=== PATIENT | male | born 1995 | race Hispanic/Latino ===

== ENCOUNTER 2023-05-20 10:22 | Emergency (ER) | payer OTHER ==
--- OUTSIDE RECORDS SUMMARY | 2023-05-20 10:32 | XMS REPORT | Continuity of Care Document ---
:1995 Author Organization [facility] t Address [address] [facility] [address] [place] [address] Care Team Providers Name Role Phone PCP, PATIENT DOES NOT HAVE A Primary Care Physician Unavaila Susanne Etienne Attending Clinician Unavailable Mariaa Casas Attending Clinician Unknown, Attending Attending Clinician Unavailable MARIAA ALMENDAREZ Attending Clinician Unavailable RANDI ROBERTS Attending Clinician Unavailable Payers Payer Name Policy Type Policy Number Effective Date Expiration Date Hannah bella CIGNA 2 [id number] 2021 00:00:00 CIGNA C1 [id number] 2020 [facility] - 00:00:00 [facility] Problems Condition Condition Condition Status Onset Resolution Last Treating Co mments Source Name Details Category Date Date Treatment Clinician Date Anxiety Anxiety Disease Active 2020- Univers 4-15 ity of 00:00: [address] Panic Panic Disease Active 2020-0 Univers attacks attacks 4-15 ity of 00:00: [address] [id number] Chronic Problem Active Common gastritis [facility] without - [facility] bleeding, St unspecifie [facility] Medical gastritis Center type [id number] Encounter Problem Active Com mon for [facility] general - [facility] adult [facility] examinatio Medica l n with Center abnormal findings [id number] Frequent Problem Active Comm on headaches [facility] - [facility] [id number] Anxiety Problem Active Commo n disorder, Spirit unspecifie - [facility] d [facility] Allergies, Adverse Reactions, Alerts Allergy Allergy Status Severity Reaction(s) Onset Inactive Treating Comm ents Source Name Type Date Date Clinician NO KNOWN Drug Active Univers ALLERGIE Class ity of S [facility] Social History Social Habit Start Date Stop Date Quantity Comments Source History of [facility] - Tobacco Use [facility] Tobacco use and 2022-12-18 2022-12-18 Smokeless tobacco Un iversity of exposure 00:00:00 00:00:00 non-user [facility] Alcohol intake 2022-12-18 2022-12-18 Lifetime University of 00:00:00 00:00:00 non-drinker [facility] (finding) [place] Sex Ass[birth year] Universit y of 00:00:00 00:00:00 [facility] Smoking Status Start Date Stop Date Source Never smoked tobacco [facility] Medications Ordered Filled Start Stop Current Ordering Indication Dosage Frequency Signature Comments Components Source Medication Medication Date Date Medication? Clinician (SIG) Name Name ondansetron 2022- No [id number] 4mg Take 1 Univers 4 mg 6-26 07-02 tablet by ity of disintegrat 00:00[place] 04:59 [place] tablet [place] :00 every 8 Medica l (eight) Branch hours as needed for Nausea and Vomiting (N/V) for up to 5 days. BUSPIRONE Yes [id number] TAKE 1 Un jermaine 10 mg 5-08 TABLET BY ity of tablet 00:00: MOUTH 2 [place] 00 TIMES Medical DAILY Branch NEEDED FOR (ANXIETY) Omeprazole Omeprazole Yes Susanne TAKE 1 [facility] [place] CAPSULE BY Spirit MOUTH - [facility] EVERY DAY [facility] BusPIRone BusPIRone Yes Susanne take 1 Co mmon HCl HCl [place] tablet by Spirit mouth 2 to - [facility] [address] [facility] as [facility] needed for Medical anxiety Center Venlafaxine Venlafaxine Yes Susanne 1 tablet Common HCl HCl [place] with food [facility] - [facility] busPIRone busPIRone No busPIRone HCl 10 MG HCl 10 MG HCl 10 MG Venlafaxine Venlafaxine No 1{table QD Venlafaxin HCl 75 MG HCl 75 MG t_with_ e HCl 75 food} MG Omeprazole Omeprazole No Omeprazole 40 MG 40 MG 40 MG Vital Signs Vital Name Observation Time Observation Value Comments Source Systolic blood 2022-12-19 00:41:00 128 mm[Hg] Univer sity [facility] Diastolic blood 2022-12-19 00:41:00 86 mm[Hg[facility] 2022-12-19 00:41:00 112 /min [facility] Body temperature 2022-12-19 00:41:00 37.44 Theresa [facility] Respiratory rate 2022-12-19 00:41:00 18 /min [facility] Body height 2022-12-19 00:41:00 177.8 cm [facility] Body weight 2022-12-19 00:41:00 125.601 kg [facility] BMI 2022-12-19 00:41:00 39.73 kg/m2 [facility] Oxygen saturation in 2022-12-19 00:41:00 96 /min [facility] Arterial blood by [facility] Pulse oximetry Branch height 2021-03-21 14:40:00 70 [in_i] [facility] weight 2021-03-21 14:40:00 240.6 [lb_av] [facility] temperature 2021-03-21 14:40:00 98.2 [degF] [facility] bmi 2021-03-21 14:40:00 34.52 kg/m2 [facility] oximetry 2021-03-21 14:40:00 99 % [facility] respiratory rate 2021-03-21 14:40:00 16 /min Comm on [facility] blood pressure 2021-03-21 14:40:00 123 mm[Hg] [facility] systolic [facility] blood pressure 2021-03-21 14:40:00 68 mm[Hg] [facility] diastolic [facility] Procedures Procedure Date / Time Performed Performing Clinician Soursylvia e POCT GLUCOSE 2022-12-19 01:00:00 Unknown, Attending [facility] Branch POCT SARS-COV-2 2022-12-18 00:00:00 Mariaa Almendarez [place] [facility] [place] ANTIGEN (BINAX NOW) Medical Bran ch Encounters Start End Encounter Admission Attending Care Care Encounter Source Date/Time Date/Time Type Type Clinicians Facility Department ID 2022-12-04 Outpatient [place], STLMLC STLMLC [id number] Common 13:14:00 Susanne [id number] [facility] 2022-03-20 Outpatient [place], STLMLC STLC [id number] Common 15:37:01 Susanne [id number] [facility] 2021-07-20 Outpatient [place], STLMLC STLC [id number] Common 14:00:13 Susanne [id number] [facility] 2021-07-20 Outpatient [place], STLMLC STLC [id number] Common 13:53:02 Susanne [id number] [facility] 2021-07-20 [facility] [place] [id number] Common 11:23:55 Susanne [id number] [facility] 2022-12-18 2022-12-18 Urgent Mariaa Almendarez [facility] [id number] Univers 19:20:00 20:14:05 Care Unknown, Attending [id number] [id number] Alberto as MY?BLEA [id number] [place] [address] MEDICAL OFFICE BUILDING 2022-12-18 2022-12-18 Outpatient Valeria ALMENDAREZ VABRUCE [facility] [id number] [facility] 19:20:00 20:14:05 MARIAA ity [facility] 2021-07-05 2021-07-05 Outpatient RANDI ROBERTS [id number] Drea 11:30:00 11:30:00 Seybol d 2021-03-21 2021-03-21 PREV VISIT [facility] [id number] Common 00:00:00 00:00:00 EST AGE [facility] 18-39 [facility] 2020-01-22 2020-01-22 Outpatient Kaden Morton [id number] Common 08:20:00 08:20:[address] Sp[facility] [address] [facility] 2019-11-24 2019-11-24 Outpatient Kaden Morton [id number] Common 08:20:00 08:20:[address] Spir [address] [facility] 2019-11-13 2019-11-13 Outpatient Kaden Morton [id number] Common 12:17:00 12:17:[address] Spir [address] [facility] Results Test Description Test Time Test Comments Results Result Comments Source POCT GLUCOSE (AUTOMATED) 2022-12-19 01:04:09 Test Item Value Reference Range Interpretation Comme nts POCT GLU (test code = 8394916206) 128 mg/dL 70-110 H Lab Interpretation (test code = 25562-4) [facility]normal [facility] ANTIGEN (BINAX NOW)2022-12-19 01:04:00 Test Item Value Reference Range Interpretation Comments POCT SARS-COV-2 ANTIGEN (test Not Detected Not Detected code = 89423-4) On board controls acceptable Yes with C Line (test code = 3574) [facility]
--- NOTE | 2023-05-20 10:42 | ER ---
Nurse's Notes [facility] Name: Pavel Penn Age: 27 yrs Sex: Male : 1995 Arrival Date: 05/20/2023 Time: 10:22 Bed 12 Private MD: Diagnosis: Acute suppurative otitis media Presentation: 05/20 10:34 Chief complaint: Patient states: RIGHT EAR PAIN X 2 DAYS RADIATES TO HEAD AND RIGHT db JAW. STATES FELT LIKE HAD A FEVER YESTERDAY. Coronavirus screen: Vaccine status: Patient reports receiving the 2nd dose of the covid vaccine. Client denies travel out of the [place] in the last 14 days. At this time, the client does not indicate any symptoms associated with coronavirus-19. Ebola Screen: Patient negative for fever greater than or equal to 101.5 degrees Fahrenheit, and additional compatible Ebola Virus Disease symptoms Patient denies exposure to infectious person. Patient denies travel to an Ebola-affected area in the 21 days before illness onset. No symptoms or risks identified at this time. Initial Sepsis Screen: Does the patient meet any 2 criteria? HR > 90 bpm. Does the patient have a suspected source of infection? No. Patient's initial sepsis screen is negative. Risk Assessment: Do you want to hurt yourself or someone else? Patient reports no desire to harm self or others. Onset of symptoms was May 20, 2023. 10:34 Method Of Arrival: Ambulatory db 10:34 Acuity: ANTHONY 4 db Triage Assessment: 10:36 General: Appears in no apparent distress. comfortable, Behavior is calm, cooperative. db Pain: Complains of pain in right ear. EENT: Ear canal PAIN. Neuro: Level of Consciousness is awake, alert, obeys commands, Oriented to person, place, time, situation, Speech is normal. Historical: - Allergies: 10:36 No Known Allergies; db - Home Meds: 10:36 None [Active]; db - PMHx: 10:36 None; db - PSHx: 10:36 None; db - Immunization history:: Adult Immunizations unknown. - Social history:: Smoking status: Patient denies any tobacco usage or history of. Screenin:24 [facility] ED Fall Risk Assessment (Adult) Score/Fall Risk Level 0 - 2 = Low Risk ll1 Oriented to surroundings, Maintained a safe environment, Educated pt \T\ family on fall prevention, incl call for assistance when getting out of bed, Hourly rounding (assess needs \T\ fall precautionary measures) done. Abuse screen: Denies threats or abuse. Nutritional screening: No deficits noted. Tuberculosis screening: No symptoms or risk factors identified. Assessment: 10:37 Reassessment: SEE TRIAGE FOR ASSESSMENT. db 11:20 Reassessment: No changes from previously documented assessment. Patient and/or family ll1 updated on plan of care and expected duration. Pain level reassessed. Patient is alert, oriented x 3, equal unlabored respirations, skin warm/dry/pink. Vital Signs: 10:34 BP 133 / 94; Pulse 105; Resp 18; Temp 98.6(O); Pulse Ox 96% on R/A; Weight 124.74 kg; db Height 5 ft. 10 in. ; 11:19 Pulse 88; Resp 17; Pulse Ox 98% on R/A; ll1 10:34 Body Mass Index 39.46 (124.74 kg, 177.8 cm) db ED Course: 10:27 Patient arrived in ED. mg5 10:32 Simi Art FNP-C is [facility]. snw 10:32 Wili Tomlin MD is Attending Physician. snw 10:34 Ruby Choen, BELKIS is Primary Nurse. db 10:36 Triage completed. db 10:36 Arm band placed on Patient placed in an exam room. db 11:25 No provider procedures requiring assistance completed. Patient did not have IV access ll1 during this emergency room visit. 11:26 Patient has correct armband on for positive identification. Bed in low position. Call ll1 light in reach. Provided Education on: n/a. Administered Medications: 11:02 Drug: Rocephin (cefTRIAXone) IM 1 grams IM once Route: IM; Site: right vastus lateralis;ll1 11:21 Follow up: Response: No adverse reaction ll1 11:07 Drug: predniSONE PO 40 mg PO once Route: PO; ll1 11:23 Follow up: Response: No adverse reaction ll1 11:07 Drug: Famotidine PO 20 mg PO once Route: PO; ll1 11:23 Follow up: Response: No adverse reaction ll1 11:07 Drug: ZyrTEC - Cetirizine PO 10 mg PO once Route: PO; ll1 11:23 Follow up: Response: No adverse reaction ll1 Medication: : VIS not applicable for this client. ll1 Outcome: 10:41 Discharge ordered by . w 11: Discharged to home ambulatory, 1 : Condition: stable 11:25 Discharge instructions given to patient, Instructed on discharge instructions, follow up and referral plans. medication usage, Demonstrated understanding of instructions, follow-up care, medications, Prescriptions given X 4, : Patient left the ED. 1 Signatures: Simi Art, DROP FORGE OPERATOR-C DROP FORGE OPERATOR-Adriaw Derrick Galicia, RN RN ll1 Ruby Cohen, RN RN db Michela Wan mg5
--- NOTE | 2023-05-20 10:42 | EDPHYS ---
Physician Documentation [facility] Name: Pavel Penn Age: 27 yrs Sex: Male : 1995 Arrival Date: 05/20/2023 Time: 10:22 Bed 12 Private MD: ED Physician Wili Tomlin HPI: 05/20 10:43 This 27 yrs old Male presents to ER via Ambulatory with complaints of Ear Pain.snw 10:43 The patient presents with pain, tenderness. The complaints affect the right ear. Onset: snw The symptoms/episode began/occurred acutely, 3 day(s) ago. Associated signs and symptoms: Pertinent positives: sore throat, cough. Severity of symptoms: At their worst the symptoms were moderate in the emergency department the symptoms are unchanged. The patient has not recently seen a physician. Historical: - Allergies: 10:36 No Known Allergies; db - Home Meds: 10:36 None [Active]; db - PMHx: 10:36 None; db - PSHx: 10:36 None; db - Immunization history:: Adult Immunizations unknown. - Social history:: Smoking status: Patient denies any tobacco usage or history of. ROS: 10:43 Eyes: Negative for injury, pain, redness, and discharge, Neck: Negative for injury, snw pain, and swelling, Cardiovascular: Negative for chest pain, palpitations, and edema, Respiratory: Negative for shortness of breath, cough, wheezing, and pleuritic chest pain, Abdomen/GI: Negative for abdominal pain, nausea, vomiting, diarrhea, and constipation, Back: Negative for injury and pain, : Negative for injury, bleeding, discharge, and swelling, MS/Extremity: Negative for injury and deformity, Skin: Negative for injury, rash, and discoloration, Neuro: Negative for headache, weakness, numbness, tingling, and seizure, Psych: Negative for depression, anxiety, suicide ideation, homicidal ideation, and hallucinations, 10:43 Constitutional: Positive for body aches, malaise, poor PO intake, 10:43 ENT: Positive for ear pain, Exam: 10:43 Constitutional: This is a well developed, well nourished patient who is awake, alert, snw and in no acute distress. Head/Face: Normocephalic, atraumatic. Eyes: Pupils equal round and reactive to light, extra-ocular motions intact. Lids and lashes normal. Conjunctiva and sclera are non-icteric and not injected. Cornea within normal limits. Periorbital areas with no swelling, redness, or edema. 10:43 Neck: Trachea midline, no thyromegaly or masses palpated, and no cervical lymphadenopathy. Supple, full range of motion without nuchal rigidity, or vertebral point tenderness. No Meningismus. Chest/axilla: Normal chest wall appearance and motion. Nontender with no deformity. No lesions are appreciated. 10:43 Respiratory: Lungs have equal breath sounds bilaterally, clear to auscultation and percussion. No rales, rhonchi or wheezes noted. No increased work of breathing, no retractions or nasal flaring. Abdomen/GI: Soft, non-tender, with normal bowel sounds. No distension or tympany. No guarding or rebound. No evidence of tenderness throughout. Back: No spinal tenderness. No costovertebral tenderness. Full range of motion. Skin: Warm, dry with normal turgor. Normal color with no rashes, no lesions, and no evidence of cellulitis. MS/ Extremity: Pulses equal, no cyanosis. Neurovascular intact. Full, normal range of motion. Neuro: Awake and alert, GCS 15, oriented to person, place, time, and situation. Cranial nerves II-XII grossly intact. Motor strength 5/5 in all extremities. Sensory grossly intact. Cerebellar exam normal. Normal gait. Psych: Awake, alert, with orientation to person, place and time. Behavior, mood, and affect are within normal limits. 10:43 ENT: External ear(s): are unremarkable, Ear canal(s): are normal, TM's: erythema, that is marked, on the right, Nose: is normal, Mouth: is normal, Posterior pharynx: erythema, that is moderate, Voice: is normal, 10:43 Cardiovascular: Rate: tachycardic, Rhythm: regular, Vital Signs: 10:34 BP 133 / 94; Pulse 105; Resp 18; Temp 98.6(O); Pulse Ox 96% on R/A; Weight 124.74 kg; db Height 5 ft. 10 in. ; 11:19 Pulse 88; Resp 17; Pulse Ox 98% on R/A; ll1 10:34 Body Mass Index 39.46 (124.74 kg, 177.8 cm) db MDM: 10:35 Patient medically screened. snw 10:45 Differential diagnosis: otitis media, otitis externa. Data reviewed: vital signs, snw nurses notes, lab test result(s). I considered the following discharge prescriptions or medication management in the emergency department Medications were administered in the Emergency Department. See MAR. Counseling: I had a detailed discussion with the patient and/or guardian regarding the historical points, exam findings, and any diagnostic results supporting the discharge/admit diagnosis, the presence of at least one elevated blood pressure reading (>120/80) during this emergency department visit, lab results, the need for outpatient follow up, for definitive care, to return to the emergency department if symptoms worsen or persist or if there are any questions or concerns that arise at home. Special discussion: I have referred the patient to see his PCP for further evaluation of high blood pressure. Based on the history and exam findings, there is no indication for further emergent testing or inpatient evaluation. I discussed with the patient/guardian the need to see the primary care provider for further evaluation of the symptoms. Administered Medications: 11:02 Drug: Rocephin (cefTRIAXone) IM 1 grams IM once Route: IM; Site: right vastus lateralis;ll1 11:21 Follow up: Response: No adverse reaction ll1 11:07 Drug: predniSONE PO 40 mg PO once Route: PO; ll1 11:23 Follow up: Response: No adverse reaction ll1 11:07 Drug: Famotidine PO 20 mg PO once Route: PO; ll1 11:23 Follow up: Response: No adverse reaction ll1 11:07 Drug: ZyrTEC - Cetirizine PO 10 mg PO once Route: PO; ll1 11:23 Follow up: Response: No adverse reaction ll1 Disposition Summary: 05/20/23 10:41 Discharge Ordered Notes: Location: Home snw Condition: Stable snw Diagnosis - Acute suppurative otitis media snw Followup: snw - With: Emergency Department - When: As needed - Reason: Worsening of condition Followup: snw - With: Private Physician - When: 2 - 3 days - Reason: Recheck today's complaints, Continuance of care, Re-evaluation by your physician Discharge Instructions: - Otitis Media, Adult snw - Upper Respiratory Infection, Adult snw - Discharge Summary Sheet ll1 Forms: - Medication Reconciliation Form snw - Thank You Letter snw - Antibiotic Education snw - Prescription Opioid Use snw - Patient Portal Instructions snw - Leadership Thank You Letter snw - Work release form ll1 Prescriptions: - cefdinir 300 mg Oral capsule - take 2 capsule ORAL route daily for 10 days; 20 capsule; Refills: 0, Product snw Selection Permitted - Zyrtec 10 mg Oral Tablet - take 1 tablet ORAL route once daily As needed; 20 tablet; Refills: 0, Product snw Selection Permitted - Prednisone 20 mg Oral Tablet - take 2 tablets ORAL route once daily for 5 days; 10 tablet; Refills: 0, Product snw Selection Permitted - Pepcid 20 mg Oral Tablet - take 1 tablet ORAL route once daily; 20 tablet; Refills: 0, Product Selection snw Permitted Signatures: Simi Art FNP-Briana SOFT WORK WRAPPER EXAMINER-Adriaw Derrick Galicia, RN RN ll1 Ruby Cohen RN RN db
[2023-05-20] MEDS ORDERED: CETIRIZINE HCL 5 MG TABLET ONE (11:05)
[2023-05-20] MEDS ORDERED: LIDOCAINE 1% MPF 5 ML VIAL ONE (11:05)
[2023-05-20] MEDS ORDERED: CEFTRIAXONE 1000 MG/VIAL ONE (11:05)
[2023-05-20] MEDS ORDERED: predniSONE 20 MG TAB ONE (11:05)
[2023-05-20] MEDS ORDERED: FAMOTIDINE 20 MG TAB ONE (11:06)
[2023-05-20 11:33] VITALS: BP 133/94; TEMP 98.6
[2023-05-20 11:34] VITALS: O2SAT 98
== END 2023-05-20 11:26 | disposition home or self-care (01) ==
LOC: ER 10:22
DX: H66.001 Acute suppurative otitis media without spontaneous rupture of ear drum, right ear (principal)
CPT/HCPCS: 96372; 99284; J7512; J2001; J0696